=== PATIENT | female | born 1980 | race Two or more races ===

== ENCOUNTER 2025-05-30 12:47 | Emergency (ER) | payer SELFPAY ==
--- NOTE | 2025-05-30 13:18 | PC.NURSE ---
called airconditioning drafting officer to speak to patient for triage, pt had concerns about insurance coverage. pt then declined to be seen and was seen walking out of ER.
== END 2025-05-30 18:00 | disposition left against medical advice (07) ==
LOC: SERX 13:33
PROVIDERS: Emergency Provider Emergency Medicine
DX: Z53.21 Procedure and treatment not carried out due to patient leaving prior to being seen by health care provider (principal)
CPT/HCPCS: 99282

== ENCOUNTER 2025-05-30 16:54 | Emergency (ER) | payer BC, SELFPAY ==
[2025-05-30 16:56] VITALS: BMI 26.8
[2025-05-30 17:17] VITALS: BP 137/85; PULSE 100; RESP 18; TEMP 38.3; O2SAT 96
--- NOTE | 2025-05-30 17:28 | EKG_ITS ---
[facility] Test Date: 2025-05-30 Pat Name: ELDER OVALLE Department: Room: - Gender: Female Clerk To Justice: : 1980 Requested By: Mikey López Order Number: [id number] Reading MD: Mikey López Measurements Intervals [place] Rate: 105 P: 51 MT: 156 QRS: 76 QRSD: 83 T: 21 QT: 304 QTc: 403 Interpretive Statements SINUS TACHYCARDIA LOW QRS VOLTAGE IN PRECORDIAL LEADS [QRS DEFLECTION < 1.0 mV IN CHEST LEADS] POSSIBLE ANTERIOR MYOCARDIAL INFARCTION , OF INDETERMINATE AGE [30 ms Q WAVE IN V3/V4, OR R < 0.2 mV IN V4] No previous ECG available for comparison /store/S0/[id number]
--- NOTE | 2025-05-30 17:28 | XR_ITS ---
Examination: PA lateral chest 2 views TECHNIQUE: Upright PA and lateral chest 2 views Date and time: May 30, 2025, 1743 hours INDICATIONS: Chest pain shortness of breath today. FINDINGS: Pneumonia left base Normal heart size Right lung clear. Osseous structures intact IMPRESSION: Significant pneumonia left base.
--- NOTE | 2025-05-30 17:29 | PD.EDRME ---
Rapid Medical Screening Exam E Arrival date/time: 05/30/25 16:54 45-year-old female with no known medical history presents to the emergency room with a chief complaint of shortness of breath and chest pain x 2 days. I have greeted and performed a focused initial assessment of this patient. A comprehensive ED assessment and evaluation of the patient, analysis of all test results, and completion of the medical decision making process will be conducted by additional ED providers. Chief Complaint: Chest Pain Time Seen by Provider: 05/30/25 17:15 Vital signs: Vital Signs Temperature 98.4 F 05/30/25 17:17 Pulse Rate 102 H 05/30/25 17:17 Respiratory Rate 18 05/30/25 17:17 Blood Pressure 137/85 H 05/30/25 17:17 Pulse Oximetry (%) 96 05/30/25 17:17 Oxygen Delivery Method Room Air 05/30/25 17:17 Vital signs reviewed by provider: Yes
[2025-05-30 18:26] LABS: Basophils # (Auto) 0.0 Thou/mm3 (0.0-0.2); Basophils % (Auto) 0 % (0-2.5); Eosinophils # (Auto) 0.2 Thou/mm3 (0.0-0.5); Eosinophils % (Auto) 2 % (0-10); Hematocrit 38.0 % (36.0-46.0); Hemoglobin 12.7 g/dL (12.0-16.0); Immature Granulocytes Auto 0.04 Thou/mm3 (0.00-0.00); Lymphocytes # (Auto) 1.1 Thou/mm3 (1.0-4.8); Lymphocytes % (Auto) 10 % (10-50); Mean Corpuscular HGB Conc 33.4 g/dl (31.0-37.0); Mean Corpuscular Hemoglobin 29.7 pg (25.0-35.0); Mean Corpuscular Volume 89 fL (80-100); Monocytes # (Auto) 0.8 Thou/mm3 (0.0-0.8); Monocytes % (Auto) 7 % (0-12); Neutrophils # (Auto) 8.4 Thou/mm3 (1.8-7.7); Neutrophils % (Auto) 80 % (37-80); Nucleated Red Blood Cell # 0.00 Thou/mm3 (0.00-0.00); Nucleated Red Blood Cell % 0 /100 WBC (0); Platelet Count 277 Thou/mm3 (140-440); RDW Standard Deviation 39.6 fL (36.4-46.3); Red Blood Count 4.27 Miln/mm3 (4.00-5.20); White Blood Count 10.5 Thou/mm3 (3.6-11.0)
[2025-05-30 18:40] LABS: Collection Type, Urine Clean Catch
[2025-05-30 18:56] LABS: Amorphous Crystals,Urine Present (Absent); Bilirubin,Urine Negative (Negative); Blood,Urine Negative (Negative); Budding Yeast,Urine Present; Clarity,Urine Turbid (Clear/Hazy); Color,Urine Yellow (Lt Yel-Yel); Glucose, Urine 4+ (Negative); Ketones,Urine Negative (Negative); Leukocyte Esterase,Urine Negative (Negative); Nitrite,Urine Negative (Negative); PH,Urine 8.0 (5.0-7.0); Protein,Urine Trace (Neg - Trace); RBC,Urine 4 /hpf (0-3); Specific Gravity,Urine 1.024 (1.001-1.035); Squamous Epithelial Cell,Urine 8 /hpf (0-5); Urobilinogen,Urine Negative mg/dL (0.0-1.0); WBC,Urine 15 /hpf (0-5)
[2025-05-30 18:57] LABS: Alanine Aminotransferase 10 U/L (10-49); Albumin, Serum 4.6 gm/dL (3.5-5.0); Albumin/Globulin Ratio 1.6 (1.2-2.2); Alkaline Phosphatase 39 U/L (46-116); Anion Gap 10 (7-16); Aspartate Amino Transferase 14 U/L (0-34); BUN/Creatinine Ratio 14 Ratio (12-20); Bilirubin,Total 0.6 mg/dL (0.3-1.2); Blood Urea Nitrogen 10 mg/dL (9-23); Calcium 9.4 mg/dL (8.3-10.6); Calcium (Corrected) 9.4 mg/dL (8.5-10.1); Carbon Dioxide 25.0 mMol/L (20.0-31.0); Chloride 102 mMol/L (98-107); Creatinine (Component) 0.7 mg/dL (0.6-1.3); Estimated Creatinine Clearance 78.5 mL/min (>60); Globulin 2.9 gm/dL (2.3-3.5); Glucose 171 mg/dL (74-106); Magnesium 2.2 mg/dL (1.6-2.6); Osmolality,Calculated 276 (275-295); Potassium 4.0 mMol/L (3.4-5.1); Sodium 137 mMol/L (136-145); Total Protein 7.5 gm/dL (5.7-8.2); Troponin I < 0.020 ng/mL (0.0-0.045); eGFR > 60 See Note
[2025-05-30 19:00] LABS: B-Type Natriuretic Peptide < 20 pg/mL (0-100)
[2025-05-30 20:21] VITALS: BP 144/86; PULSE 93; RESP 18; TEMP 37.8; O2SAT 99
--- NOTE | 2025-05-30 20:24 | EDNOTE_ITS ---
ED Chest Pain RME/HPI General Chief Complaint: Chest Pain Stated Complaint: CHEST PAIN Time Seen by Provider: 05/30/25 17:15 Arrival date/time: 05/30/25 16:54 RME / HPI RME / HPI narrative: 05/30/25 16:54 45-year-old female with no known medical history presents to the emergency room with a chief complaint of shortness of breath and chest pain x 2 days. I have greeted and performed a focused initial assessment of this patient. A comprehensive ED assessment and evaluation of the patient, analysis of all test results, and completion of the medical decision making process will be conducted by additional ED providers. --------- Dr. Farrar?shiv Main ED Evaluation: 45yo female presenting with vaguely described luq/flank pain. Associated fever. Denies cough. Reports mild shortness of breath. No vomiting or diarrhea. PMH DM, HLD. PSH unremarkable. Related Data Previous Rx's ?Medication ?Instructions ?Recorded albuterol sulfate 90 mcg/actuation 2 puff inhalation Q 6H PRN 05/30/25 aerosol inhaler shortness of breath or wheez ing #8.5 grams cefuroxime axetil 500 mg tablet 500 mg PO Q12H #20 tab s 05/30/25 dextromethorphan-guaifenesin 5 10 ml PO Q6H PRN cough #180 mL 05/30/25 mg-100 mg/5 mL oral liquid (Robitussin Cough-Chest Congestion DM) doxycycline hyclate 100 mg capsule 100 mg PO BID 10 da ys #20 caps 05/30/25 Allergies Allergy/AdvReac Type Severity Reaction Status Date / Time No Known Drug Allergies Allergy Verified 05/30/25 17:04 Review of Systems Review of Systems Systems Reviewed: All systems reviewed, normal except as documented Past Medical History Social History SMOKING STATUS: Never smoker ED Exam Narrative Physical exam: GENERAL APPEARANCE: alert and oriented x 4, well-developed, well-nourished, nontoxic, no acute distress VITALS: All vitals were reviewed and the pulse ox is 99% on room air, which is normal according to my interpretation. Noted low-grade fever. HEENT: Normocephalic, atraumatic; pupils equal, round, reactive to light; EOMI; mucous membranes pink, moist; oropharynx clear NECK: Supple LUNGS: CTABL; no wheezes, no rales, no rhonchi HEART: Regular rate, regular rhythm; normal S1, S2; no murmurs ABDOMEN: non distended; normal BS; soft, no tenderness, no guarding, no rebound; no masses, no organomegaly, no hernia BACK: ? mild left CVA tenderness EXTREMITIES: atraumatic; no edema NEUROLOGIC: awake; alert and oriented x4; cranial nerves II-XII grossly intact; no focal sensory or motor deficits PSYCHIATRIC: appropriate mood and affect SKIN: warm, dry, normal color; no rashes Course Course Course Narrative: CXR is ordered for determining the etiology of chest pain. Quality Measures none Orders Category Date Time Status Bedside COVID-19 Antigen Test NOW Care 05/30/25 17:29 Completed Bedside Influenza A&B Antigen Test NOW Care 05/30/25 17:29 Completed EKG (ED ONLY) *Do not use* NOW Care 05/30/25 17:28 Completed EKG (ED Only) Stat Exams 05/30/25 17:28 Draft XR chest 2V Stat Exams 05/30/25 17:28 Completed B-Type Natriuretic Peptide Stat Lab 05/30/25 18:04 Completed CBC Stat Lab 05/30/25 18:04 Completed Comprehensive Metabolic Panel Stat Lab 05/30/25 18:04 Completed Magnesium Stat Lab 05/30/25 18:04 Completed Troponin I Stat Lab 05/30/25 18:04 Completed Urinalysis Stat Lab 05/30/25 18:34 Completed Doxycycline [Vibramycin] Med 05/30/25 20:50 Discontinued 100 mg PO X1 ONE cefTRIAXone [Rocephin] 1,000 mg Med 05/30/25 20:49 Discontinued Lidocaine 1% 20 ml [Xylocaine 1% 20 ML] 2.1 ml IM X1 Vital Signs Vital signs: Vital Signs Temperature 100.9 F H 05/30/25 17:17 Pulse Rate 100 05/30/25 17:17 Respiratory Rate 18 05/30/25 17:17 Blood Pressure 137/85 H 05/30/25 17:17 Pulse Oximetry (%) 96 05/30/25 17:17 Oxygen Delivery Method Room Air 05/30/25 17:17 Chest Pain MDM Narrative MDM Narrative:: Scribe Attestation: 05/30/25 Shalonda Cota am scribing for and in the presence of Dr. Farrar. 45yo female presenting with vaguely described luq/flank pain. Associated fever. Please see PE findings. Lab markers including CBC and chemistries are unremarkable. UA shows equivocal evidence of infection. CXR demonstrates evidence of left lower lobar pneumonia. Patient administered IM Rocephin and PO Azithromycin. Patient remained hemodynamically stable without signs of sepsis or respiratory insufficiency. Will discharge the patient home on outpatient antibiotics (Cefuroxime and Doxycycline), mucolytic, and cough suppressant in addition to an inhaler. Close follow-up advised and return precautions given. Patient data External records reviewed:: [facility] previous records (Per chart review, patient has no previous ED visits or admissions to this facility.) Clinical information provided by:: patient Social determinants that could affect healthcare access:: none Patient has the following chronic illnesses:: none How is presenting disease/condition affected by chronic disease/condition?: no chronic disease Evaluation data The following diagnostics were reviewed and interpreted by me:: lab results, radiology exam(s) and EKG tracing(s) Lab and/or radiology exams considered but not ordered:: none Interpretation Summary: EKG done at 1730, sinus tachycardia, rate of 105, no ST segment elevation, nonspecific ST-T wave changes, possible previous anterior septal wall infarct, no ectopy, normal axis, according to my interpretation. -------- [facility] Report Signed Patient: ELDER OVALLE [facility]. Record#: [id number] Birthdate: 1980 Age/Sex: 45 / F Location: [facility] Attending Dr: Ordering Physician: Mikey Clark Date of Service: 05/30/25 Procedure(s): XR chest 2V Accession Number(s): [id number] cc: Mikey Clark; Bhupinder Jean MD; NO PRIMARY/FAMILY,PHYSICIAN~ Examination: PA lateral chest 2 views TECHNIQUE: Upright PA and lateral chest 2 views Date and time: May 30, 2025, 1743 hours INDICATIONS: Chest pain shortness of breath today. FINDINGS: Pneumonia left base Normal heart size Right lung clear. Osseous structures intact IMPRESSION: Significant pneumonia left base. Dictated By: Bhupinder Jean MD Signed By: <Electronically signed by Bhupinder Jean MD in OV> 05/30/25 7813 Medications / Prescriptions Medications or Prescriptions considered but not ordered:: none Medication administrations:: Medication Administration History Discontinued Medications Ceftriaxone Sodium 1,000 mg/ (Lidocaine HCl 2.1 ml) 0 mg IM X1 ONE Stop: 05/30/25 20:50 Last Admin: 05/30/25 20:56 Dose: 1,000 mg Documented By: SUYAPA Doxycycline Hyclate (Doxycycline 100 Mg Tablet) 100 mg PO X1 ONE Stop: 05/30/25 20:51 Last Admin: 05/30/25 20:56 Dose: 100 mg Documented By: SUYAPA see above Consultations Consultation(s) initiated? (list below): No Diagnosis Chest Pain Differential Diagnosis: atypical chest pain, st elevation myocardial infarction and other (NSTEMI, pneumonia, COVID, Influenza, viral syndrome, URI) Most likely diagnosis given after review of the tests above:: Pneumonia Admission Indicated Admission indicated?: not indicated Admission Request Was there a request for admission?: No Disposition Plan Disposition Plan: Discharge Discharge Attestation Discharge Attestation: The patient and all family members were given an opportunity to ask questions and understood the discharge instructions. Discharge instructions specifically effects, indications for sooner follow up or return to the emergency department, and the expected course of current diagnosis. Patient condition: Stable Discharge Plan Plan Patient Disposition: HOME (Self Care) Discharge Disposition comment: Stable Prescriptions/Referrals Prescriptions/Med Rec: New cefuroxime axetil 500 mg tablet 500 mg PO Q12H Qty: 20 0RF doxycycline hyclate 100 mg capsule 100 mg PO BID 10 Days Qty: 20 0RF dextromethorphan-guaifenesin [Robitussin Cough-Chest Angelo DM] 5-100 mg/5 mL liquid 10 ml PO Q6H PRN (Reason: cough) Qty: 180 0RF albuterol sulfate 90 mcg/actuation HFA aerosol inhaler 2 puff inhalation Q6H PRN (Reason: shortness of breath or wheezing) Qty: 8.5 0RF Referrals: [facility] [Outside] - In 1 week (Please evaluate for evidence of left lower lobe pneumonia) No Primary/Family,Physician [Primary Care Provider] - In 1 week Problem List Clinical Impression: Pneumonia Impression comment: Pneumonia Patient/Caregiver Discharge Instructions Discharge Activity: resume usual activities Diet Instructions: Regular Education Materials: What Is Pneumonia? Additional Instructions: Increase fluids/maintain adequate rest/medications as directed/follow-up with the [facility] and return for increasing shortness of breath lightheadedness dizziness or worsening condition. Print Language: Mandarin Stand Alone Forms: Karolina Award Info., Patient Portal Info Letter
[2025-05-30] MEDS: cefTRIAXone 1,000 MG, LIDOCAINE 1% 20 ML 2.1 ML IM (20:56)
[2025-05-30] MEDS: DOXYCYCLINE 100 MG TABLET PO (20:56)
== END 2025-05-30 21:25 | disposition home or self-care (01) ==
PROVIDERS: Nurse Practitioner Family; Emergency Provider Emergency Medicine
DX: J18.9 Pneumonia, unspecified organism (principal); R00.0 Tachycardia, unspecified
CPT/HCPCS: 36415; 71046; 80053; 81001; 83735; 83880; 84484; 85025; 87400; 87811; 93005; 96372; 99283; J0696; J3490; A9270

== ENCOUNTER 2025-06-10 08:54 | Emergency (ER) | payer BC, SELFPAY ==
--- NOTE | 2025-06-10 09:18 | XR_ITS ---
Examination: PA lateral chest 2 views TECHNIQUE: Upright PA lateral chest 2 views Date and time: June 10, 2025 1004 hours INDICATIONS: Shortness of breath with pneumonia diagnosis 11 days ago. FINDINGS: Worsening pneumonia at the left base and lingular segment left upper lobe compared with June 09, 2025 Normal heart size Right lung clear IMPRESSION: Worsening significant left lung pneumonia
--- NOTE | 2025-06-10 09:18 | EKG_ITS ---
[facility] Test Date: 2025-06-10 Pat Name: ELDER OVALLE Department: Room: - Gender: Female Casino Worker: : 1980 Requested By: Marcello Moore (JESUS ALBERTO) Order Number: [id number] Reading MD: Marcello Moore (EXPORT AGENT) Measurements Intervals [place] Rate: 79 P: 59 SC: 175 QRS: 66 QRSD: 93 T: 14 QT: 367 QTc: 423 Interpretive Statements SINUS RHYTHM LOW QRS VOLTAGE IN PRECORDIAL LEADS [QRS DEFLECTION < 1.0 mV IN CHEST LEADS] Compared to ECG 05/30/2025 17:30:53 Sinus tachycardia no longer present Myocardial infarct finding no longer present /store/S0/[id number]/ecg/[id number]
--- NOTE | 2025-06-10 09:18 | PD.EDRME ---
Rapid Medical Screening Exam RME Arrival date/time: 06/10/25 08:54 45-year-old female presents to the Emergency Department for complaint of shortness of breath patient had a diagnosis of pneumonia 11 days ago reports she has had continued shortness of breath Chief Complaint: Shortness of Breath/Dyspnea
[2025-06-10 09:22] VITALS: BP 115/78; PULSE 87; RESP 22; TEMP 36.8; O2SAT 97; BMI 22.6
[2025-06-10 09:58] LABS: Basophils # (Auto) 0.1 Thou/mm3 (0.0-0.2); Basophils % (Auto) 1 % (0-2.5); Eosinophils # (Auto) 0.9 Thou/mm3 (0.0-0.5); Eosinophils % (Auto) 8 % (0-10); Hematocrit 39.9 % (36.0-46.0); Hemoglobin 13.1 g/dL (12.0-16.0); Immature Granulocytes Auto 0.08 Thou/mm3 (0.00-0.00); Lymphocytes # (Auto) 1.4 Thou/mm3 (1.0-4.8); Lymphocytes % (Auto) 12 % (10-50); Mean Corpuscular HGB Conc 32.8 g/dl (31.0-37.0); Mean Corpuscular Hemoglobin 28.9 pg (25.0-35.0); Mean Corpuscular Volume 88 fL (80-100); Monocytes # (Auto) 1.0 Thou/mm3 (0.0-0.8); Monocytes % (Auto) 8 % (0-12); Neutrophils # (Auto) 8.1 Thou/mm3 (1.8-7.7); Neutrophils % (Auto) 71 % (37-80); Nucleated Red Blood Cell # 0.00 Thou/mm3 (0.00-0.00); Nucleated Red Blood Cell % 0 /100 WBC (0); Platelet Count 456 Thou/mm3 (140-440); RDW Standard Deviation 38.8 fL (36.4-46.3); Red Blood Count 4.53 Miln/mm3 (4.00-5.20); White Blood Count 11.5 Thou/mm3 (3.6-11.0)
[2025-06-10 09:59] LABS: Lactate (Lactic Acid) 1.8 mMol/L (0.4-2.0)
--- NOTE | 2025-06-10 10:10 | EDNOTE_ITS ---
ED SOB =RME/HPI General Chief Complaint: Shortness of Breath/Dyspnea Stated Complaint: SOB since 05/30/2025, PNA Time Seen by Provider: 06/10/25 09:46 Arrival date/time: 06/10/25 08:54 Limitations: no limitations RME / HPI RME / HPI Narrative: 06/10/25 08:54 45-year-old female presents to the Emergency Department for complaint of shortness of breath patient had a diagnosis of pneumonia 11 days ago reports she has had continued shortness of breath DR. OSWALD MAIN ED EVALUATION: 45 year old female with no stated medical history presents to the ED for evaluation of shortness of breath not improving since being diagnosed with pneumonia 2 weeks ago. Accompanied by subjective fevers, coughing, difficulty sleeping due to cough, and chest pain. reports the patient was prescribed a 10-day course of antibiotics which she completed without improvement. Per EMR review, patient was discharged 05/30/2025 diagnosed with pneumonia and prescribed both Cefuroxime and Doxycycline. No other associated symptoms reported. Related Data Previous Rx's ?Medication ?Instructions ?Recorded albuterol sulfate 90 mcg/actuation 2 puff inhalation Q 6H PRN 05/30/25 aerosol inhaler shortness of breath or wheez ing #8.5 grams cefuroxime axetil 500 mg tablet 500 mg PO Q12H #20 tab s 05/30/25 dextromethorphan-guaifenesin 5 10 ml PO Q6H PRN cough #180 mL 05/30/25 mg-100 mg/5 mL oral liquid (Robitussin Cough-Chest Congestion DM) albuterol sulfate 90 mcg/actuation 2 puff inhalation Q 6H PRN 06/10/25 aerosol inhaler shortness of breath or wheez ing #8.5 grams doxycycline monohydrate 100 mg 100 mg PO BID PNEUMONIA #20 caps 06/10/25 capsule levofloxacin 500 mg tablet 500 mg PO Q24H 10 days #10 tabs 06/10/25 prednisone 20 mg tablet See Taper PO QDAY allergic 0 06/10/25 reaction #18 tabs Allergies Allergy/AdvReac Type Severity Reaction Status Date / Time No Known Drug Allergies Allergy Verified 06/10/25 09:00 Review of Systems Review of Systems Systems Reviewed: All systems reviewed, normal except as documented Past Medical History Social History SMOKING STATUS: Never smoker ED Exam General Limitations: Present no limitations General appearance: Present alert and in no apparent distress Head Head exam: Present atraumatic, normocephalic and normal inspection Eye Eye exam: Present normal appearance and EOMI ENT ENT exam: Present normal exam, normal oropharynx and mucous membranes moist Neck Neck exam: Present normal inspection, full ROM and trachea midline Chest Chest inspection: Present normal inspection and symmetric chest wall rise Respiratory Respiratory exam: Present other (Diminished breath sounds left base, no wheezing, no rhonchi, no rales, no crackles ) Cardiovascular Cardiovascular exam: Present regular rate, normal rhythm and normal heart sounds Abdominal Exam Abdominal exam: Present soft and normal bowel sounds Extremities Exam Extremities exam: Present normal inspection and full ROM Back Exam Back exam: Present normal inspection and full ROM Neurological Exam Neurological exam: Present alert, oriented X3 and CN II-XII intact Psychiatric Psychiatric exam: Present normal affect and normal mood Skin Skin exam: Present warm, dry, intact and normal color Course Quality Measures none Orders Category Date Time Status Bedside COVID-19 Antigen Test NOW Care 06/10/25 09:18 Active Bedside Influenza A&B Antigen Test NOW Care 06/10/25 09:18 Completed EKG (ED ONLY) *Do not use* NOW Care 06/10/25 09:18 Completed EKG (ED Only) Stat Exams 06/10/25 09:18 Draft XR chest 2V Stat Exams 06/10/25 09:18 Completed Blood Culture (Lab) Stat Lab 06/10/25 09:50 Received CBC Stat Lab 06/10/25 09:50 Completed Cocci Serology IgM with reflex to IgG [Cocci Serology, Lab 06/10/25 09:50 Received Unk History] Stat Comprehensive Metabolic Panel Stat Lab 06/10/25 09:50 Completed HCG,Qualitative Serum Stat Lab 06/10/25 09:50 Completed Lactate (Lactic Acid) Stat Lab 06/10/25 09:50 Completed Procalcitonin Stat Lab 06/10/25 09:50 Completed Troponin I Stat Lab 06/10/25 09:50 Completed ALBUTEROL RT 3ml [Proventil Rt 3ml] Med 06/10/25 10:36 Discontinued 5 mg INH X1 ONE Levofloxacin [Levaquin] Med 06/10/25 10:36 Discontinued 500 mg PO X1 ONE predniSONE Med 06/10/25 10:36 Discontinued 60 mg PO X1 ONE Vital Signs Vital signs: Vital Signs Temperature 98.2 F 06/10/25 09:22 Pulse Rate 87 06/10/25 09:22 Respiratory Rate 22 H 06/10/25 09:22 Blood Pressure 115/78 06/10/25 09:22 Pulse Oximetry (%) 97 06/10/25 09:22 Oxygen Delivery Method Room Air 06/10/25 09:22 Pulse ox is 97% on room air which is adequate. Shortness of Breath / Dyspnea MDM Narrative MDM Narrative:: Arianne Hicks am scribing for and in the presence of Dr. Jhaveri. Patient data External records reviewed:: [facility] previous records (I reviewed ED visit from 05/30/2025 ) Clinical information provided by:: patient Social determinants that could affect healthcare access:: none Patient has the following chronic illnesses:: None reported How is presenting disease/condition affected by chronic disease/condition?: no chronic disease Evaluation data The following diagnostics were reviewed and interpreted by me:: lab results, radiology exam(s) and EKG tracing(s) (06/10/2025 @ 09:25 AM. NSR, rate 79, no STEMI. ) Lab and/or radiology exams considered but not ordered:: None Interpretation Summary: Ordering Physician: Teresa COCHRAN)Marcello NP Date of Service: 06/10/25 Procedure(s): XR chest 2V Accession Number(s): [id number] cc: Teresa COCHRAN),Marcello GRANDA; Lucia Berger LIGHT RAIL VEHICLE OPERATOR; Bhupinder Jean MD~ Examination: PA lateral chest 2 views TECHNIQUE: Upright PA lateral chest 2 views Date and time: June 10, 2025 1004 hours INDICATIONS: Shortness of breath with pneumonia diagnosis 11 days ago. FINDINGS: Worsening pneumonia at the left base and lingular segment left upper lobe compared with June 09, 2025 Normal heart size Right lung clear IMPRESSION: Worsening significant left lung pneumonia Dictated By: Bhupinder Jean MD Signed By: <Electronically signed by Bhupinder Jean MD in OV> 06/10/25 1014 Medications / Prescriptions Medications or Prescriptions considered but not ordered:: None Medication administrations:: Medication Administration History Discontinued Medications Albuterol (Albuterol Rt 2.5 Mg/3 Ml Nebu) 5 mg INH X1 ONE Stop: 06/10/25 10:37 Levofloxacin (Levofloxacin 250 Mg Tablet) 500 mg PO X1 ONE Stop: 06/10/25 10:37 Prednisone (Prednisone 20 Mg Tablet) 60 mg PO X1 ONE Stop: 06/10/25 10:37 See above Consultations Consultation(s) initiated? (list below): No Diagnosis Shortness of Breath Differential Diagnosis: acute exacerbation of chronic obstructive airways disease, congestive heart failure, community acquired pneumonia and asthma with exacerbation Most likely diagnosis given after review of the tests above:: Left lower lobe pneumonia Admission Indicated Admission indicated?: not indicated Admission Request Was there a request for admission?: No Disposition Plan Disposition Plan: Discharge Discharge Attestation Discharge Attestation: The patient and all family members were given an opportunity to ask questions and understood the discharge instructions. Discharge instructions specifically effects, indications for sooner follow up or return to the emergency department, and the expected course of current diagnosis. Patient condition: Stable Discharge Plan Plan Patient Disposition: HOME (Self Care) Prescriptions/Referrals Prescriptions/Med Rec: New levofloxacin 500 mg tablet 500 mg PO Q24H 10 Days Qty: 10 0RF prednisone 20 mg tablet See Taper PO QDAY MDD 3 Qty: 18 0RF Taper: Prednisone Taper 20 mg DAILY for 2 Days and 0 Hour Rx Instructions: Take 3 Tabs q Day for 3 days then take 2 tabs q Day for 3 days then take 1 tablet q Day for 3 days then D/C #18 doxycycline monohydrate 100 mg capsule 100 mg PO BID MDD 2 Qty: 20 0RF albuterol sulfate 90 mcg/actuation HFA aerosol inhaler 2 puff inhalation Q6H MDD 4 PUFFS PRN (Reason: shortness of breath or wheezing) Qty: 8.5 1RF No Action cefuroxime axetil 500 mg tablet 500 mg PO Q12H Qty: 20 0RF dextromethorphan-guaifenesin [Robitussin Cough-Chest Angelo DM] 5-100 mg/5 mL liquid 10 ml PO Q6H PRN (Reason: cough) Qty: 180 0RF albuterol sulfate 90 mcg/actuation HFA aerosol inhaler 2 puff inhalation Q6H PRN (Reason: shortness of breath or wheezing) Qty: 8.5 0RF Referrals: Lucia Berger FNP [Primary Care Provider] - In 1 week Problem List Clinical Impression: Left lower lobe pneumonia Patient/Caregiver Discharge Instructions Education Materials: ED Pneumonia (Adult) Additional Instructions: Follow-up with your primary care doctor in 2-3 days for recheck. You can return to the emergency department sooner if symptoms worsen or if you notice any new, concerning issues. Print Language: Mandarin Stand Alone Forms: Karolina Award Info., Patient Portal Info Letter
[2025-06-10 10:13] LABS: HCG,Qualitative Serum Negative
[2025-06-10 10:23] LABS: Alanine Aminotransferase 67 U/L (10-49); Albumin, Serum 4.4 gm/dL (3.5-5.0); Albumin/Globulin Ratio 1.3 (1.2-2.2); Alkaline Phosphatase 52 U/L (46-116); Anion Gap 11 (7-16); Aspartate Amino Transferase 44 U/L (0-34); BUN/Creatinine Ratio 12 Ratio (12-20); Bilirubin,Total 0.4 mg/dL (0.3-1.2); Blood Urea Nitrogen 7 mg/dL (9-23); Calcium 10.1 mg/dL (8.3-10.6); Calcium (Corrected) 10.1 mg/dL (8.5-10.1); Carbon Dioxide 25.2 mMol/L (20.0-31.0); Chloride 102 mMol/L (98-107); Creatinine (Component) 0.6 mg/dL (0.6-1.3); Estimated Creatinine Clearance 95.9 mL/min (>60); Globulin 3.4 gm/dL (2.3-3.5); Glucose 103 mg/dL (74-106); Osmolality,Calculated 273 (275-295); Potassium 3.4 mMol/L (3.4-5.1); Procalcitonin 0.06 ng/ml (0.0-0.49); Sodium 138 mMol/L (136-145); Total Protein 7.8 gm/dL (5.7-8.2); Troponin I < 0.002 ng/mL (0.0-0.045); eGFR > 60 See Note
[2025-06-10] MEDS: LEVOFLOXACIN 250 MG TABLET 500 MG PO (11:43)
[2025-06-10 11:45] VITALS: PULSE 88
[2025-06-10] MEDS: ALBUTEROL RT 2.5 MG/3 ML NEBU 5 MG INH (11:45)
[2025-06-10 11:47] VITALS: PULSE 85; RESP 19; O2SAT 99
[2025-06-10 12:01] LABS: Cocci Serology, IgM Positive (Negative)
[2025-06-10 12:03] LABS: Cocid Sro, CF/ID (UCD) NO CHG* See Sep Rpt
[2025-06-10 12:21] VITALS: RESP 20; O2SAT 97
== END 2025-06-10 12:22 | disposition home or self-care (01) ==
PROVIDERS: Nurse Practitioner Primary Care; Emergency Provider Family Medicine; PCP Registered Nurse Community Health
DX: J18.9 Pneumonia, unspecified organism (principal)
CPT/HCPCS: 36415; 71046; 80053; 83605; 84145; 84484; 84703; 85025; 86635; 87040; 87400; 87811; 93005; 94640; 99283; J7512; A9270

== ENCOUNTER 2025-06-11 12:44 | Observation (INO) | payer BC, SELFPAY ==
[2025-06-11 12:58] VITALS: BP 135/87; PULSE 84; RESP 22; TEMP 36.7; O2SAT 99; BMI 21.8
--- NOTE | 2025-06-11 12:58 | PD.EDURI ---
Upper Respiratory Inf. RME/HPI General Chief Complaint: Flu Like Symptoms Stated Complaint: COUGH AND WHEEZING Time Seen by Provider: 06/11/25 12:47 Arrival date/time: 06/11/25 12:44 45-year-old female presents to the Emergency Department today for complaint of shortness of breath and cough patient was evaluated yesterday and she also had a visit back on the eighth 12 days ago. I ordered a coccidiomycosis test on this patient yesterday patient was discharged prior to the results. Limitations: no limitations Related Data Previous Rx's ?Medication ?Instructions ?Recorded albuterol sulfate 90 mcg/actuation 2 puff inhalation Q6H PRN 05/30/25 aerosol inhaler shortness of breath or wheezing #8.5 grams cefuroxime axetil 500 mg tablet 500 mg PO Q12H #20 tabs 05/30/25 dextromethorphan-guaifenesin 5 10 ml PO Q6H PRN cough #180 mL 05/30/25 mg-100 mg/5 mL oral liquid (Robitussin Cough-Chest Congestion DM) albuterol sulfate 90 mcg/actuation 2 puff inhalation Q6H PRN 06/10/25 aerosol inhaler shortness of breath or wheezing #8.5 grams doxycycline monohydrate 100 mg 100 mg PO BID PNEUMONIA #20 caps 06/10/25 capsule levofloxacin 500 mg tablet 500 mg PO Q24H 10 days #10 tabs 06/10/25 prednisone 20 mg tablet See Taper PO QDAY allergic 06/10/25 reaction #18 tabs Allergies Allergy/AdvReac Type Severity Reaction Status Date / Time No Known Drug Allergies Allergy Verified 06/11/25 12:50 Review of Systems Review of Systems Systems Reviewed: All systems reviewed, normal except as documented Constitutional Constitutional: Reports system reviewed and no additional complaints, except as documented, Denies fever(s) and Denies headache(s) Eyes Eyes: Reports system reviewed and no additional complaints, except as documented and Denies blurry vision ENT Ears, Nose, Mouth, and Throat: Reports system reviewed and no additional complaints, except as documented, Denies headache(s), Denies nasal congestion and Denies nasal discharge Cardiovascular Cardiovascular: Reports system reviewed and no additional complaints, except as documented, Denies chest pain, Denies dyspnea and Reports dyspnea on exertion Respiratory Respiratory: Reports system reviewed and no additional complaints, except as documented, Reports chest congestion, Reports cough, Denies dyspnea, Reports dyspnea on exertion, Reports excessive phlegm production, Denies hemoptysis, Reports pain on inspiration, Reports pain with cough, Denies stridor and Denies wheezing Gastrointestinal Gastrointestinal: Reports system reviewed and no additional complaints, except as documented and Denies abdominal pain Integumentary/Breasts Skin/Breast: Reports system reviewed and no additional complaints, except as documented and Denies rash Neurologic Neurologic: Reports system reviewed and no additional complaints, except as documented, Reports as per HPI and Denies headache(s) Allergic/Immunologic Allergic/Immunologic: Denies wheezing Past Medical History Social History SMOKING STATUS: Never smoker ED Exam General Limitations: Present no limitations General appearance: Present alert and in no apparent distress Head Head exam: Present atraumatic, normocephalic and normal inspection Eye Eye exam: Present normal appearance, PERRL and EOMI; Absent conjunctival injection ENT ENT exam: Present normal exam, normal oropharynx and mucous membranes moist Neck Neck exam: Present normal inspection, full ROM and trachea midline Chest Chest inspection: Present normal inspection and symmetric chest wall rise Respiratory Respiratory exam: Present accessory muscle use and prolonged expiratory phase; Absent respiratory distress, wheezes or stridor Cardiovascular Cardiovascular exam: Present regular rate, normal rhythm and normal heart sounds Abdominal Exam Abdominal exam: Present soft and normal bowel sounds Extremities Exam Extremities exam: Present normal inspection and full ROM Back Exam Back exam: Present normal inspection and full ROM Neurological Exam Neurological exam: Present alert, oriented X3 and CN II-XII intact Psychiatric Psychiatric exam: Present normal affect and normal mood Skin Skin exam: Present warm, dry, intact and normal color Course Quality Measures none Orders Category Date Time Status Admit to Inpatient Status Routine Admission 06/11/25 14:04 Active Patient Condition Routine Admission 06/11/25 14:02 Ordered Activity as Tolerated Routine Care 06/11/25 14:05 Ordered COVID-19 Screening Questionnaire NOW Care 06/11/25 13:48 Active Continuous Pulse Oximetry NOW Care 06/11/25 14:02 Active Decision to Admit X1 Care 06/11/25 13:48 Active Flu & Pneumonia Vaccine Screen ONCE Care 06/11/25 14:07 Active Insert IV NOW Care 06/11/25 13:48 Active Miscellaneous Nursing Order NOW Care 06/11/25 14:10 Active Notify provider NEEDED Care 06/11/25 14:02 Active Sequential Compression Device QSHIFT Care 06/11/25 14:07 Active Diet Regular Diet 06/11/25 Dinner Active XR chest 1V portable Routine Exams 06/11/25 14:09 Taken CBC AM DRAW Lab 06/12/25 05:00 Ordered CBC AM DRAW Lab 06/13/25 05:00 Ordered CBC AM DRAW Lab 06/14/25 05:00 Ordered Comprehensive Metabolic Panel AM DRAW Lab 06/12/25 05:00 Ordered Comprehensive Metabolic Panel AM DRAW Lab 06/13/25 05:00 Ordered Comprehensive Metabolic Panel AM DRAW Lab 06/14/25 05:00 Ordered Lipid Panel AM DRAW Lab 06/12/25 05:00 Ordered Magnesium AM DRAW Lab 06/12/25 05:00 Ordered Magnesium AM DRAW Lab 06/13/25 05:00 Ordered Magnesium AM DRAW Lab 06/14/25 05:00 Ordered Phosphorous AM DRAW Lab 06/12/25 05:00 Ordered Phosphorous AM DRAW Lab 06/13/25 05:00 Ordered Phosphorous AM DRAW Lab 06/14/25 05:00 Ordered Thyroid Stimulating Hormone AM DRAW Lab 06/12/25 05:00 Ordered Acetaminophen Tab [Tylenol Tab] Med 06/11/25 14:02 Discontinued 650 mg PO Q6H PRN Fluconazole/Ns 400 mg Ivpb [Diflucan/Ns Ivpb] Med 06/11/25 14:12 Active 400 mg in 200 ml IV QDAY Ondansetron Inj [Zofran Inj] Med 06/11/25 14:07 Active 4 mg IVP Q6H PRN Sodium Chloride 0.9% 1000 ml [Ns] 1,000 ml Med 06/11/25 14:15 Discontinued IV 75 mls/hr guaiFENesin/COD SYRUP [Robitussin Ac Syrup] Med 06/11/25 14:17 Active 10 ml PO Q6H PRN Code Status Routine Oth 06/11/25 14:02 Ordered Oxygen Delivery DAILY RT 06/11/25 14:06 Active Vital Signs Vital signs: Vital Signs Temperature 98.0 F 06/11/25 12:58 Pulse Rate 84 06/11/25 12:58 Respiratory Rate 22 H 06/11/25 12:58 Blood Pressure 135/87 H 06/11/25 12:58 Pulse Oximetry (%) 99 06/11/25 12:58 Oxygen Delivery Method Room Air 06/11/25 12:58 O2 saturation 98% room air Upper Respiratory Infection MDM Narrative MDM Narrative:: 45-year-old female presents to the Emergency Department today for complaint of shortness of breath and cough patient was evaluated yesterday and she also had a visit back on the eighth 12 days ago. I ordered a coccidiomycosis test on this patient yesterday patient was discharged prior to the results. On exam patient has increased work of breathing cough and congestion I reviewed the patient's cocci test which came back positive Based on the cocci pneumonia and shortness of breath I do believe patient benefit from admission Consultation: I spoke with the hospitalist team who agreed to admit the patient Patient data External records reviewed:: [facility] previous records Clinical information provided by:: patient Social determinants that could affect healthcare access:: none Patient has the following chronic illnesses:: None How is presenting disease/condition affected by chronic disease/condition?: no chronic disease Evaluation data The following diagnostics were reviewed and interpreted by me:: lab results and radiology exam(s) Lab and/or radiology exams considered but not ordered:: Labs radiology reviewed Interpretation Summary: Labs and radiology reviewed Medications / Prescriptions Medications or Prescriptions considered but not ordered:: No meds Medication administrations:: Medication Administration History Acetaminophen (Acetaminophen 325 Mg Tablet) 650 mg PO Q6H PRN PRN Reason: Fever >100.4 Stop: 07/11/25 14:01 Albuterol/Ipratropium (Albuterol/Ipratropium (Duoneb) Rt Samira 3 Ml Nebu) 3 ml INH Q6HRRT PRN PRN Reason: shortness of breath Stop: 07/11/25 18:59 Azithromycin (Azithromycin 250 Mg Tablet) 500 mg PO QDAY [facility] Stop: 06/18/25 14:44 Guaifenesin/Codeine Phosphate (Guaifenesin/Cod Syrup 5 Ml Udc) 10 ml PO Q6H PRN; Protocol PRN Reason: COUGH Stop: 07/11/25 14:16 Fluconazole (Diflucan/Ns Ivpb) 400 mg in 200 mls @ 100 mls/hr IV QDAY ANN Stop: 06/18/25 14:11 Sodium Chloride (Ns) 1,000 mls @ 100 mls/hr IV .Q10H ANN Stop: 07/11/25 14:33 Ondansetron HCl (Ondansetron Inj 2 Mg/Ml Inj 2 Ml) 4 mg IVP Q6H PRN; Protocol PRN Reason: NAUSEA OR VOMITING Stop: 07/11/25 14:06 Discontinued Medications Acetaminophen (Acetaminophen 325 Mg Tablet) 650 mg PO Q6H PRN PRN Reason: Fever >101.5 Stop: 07/11/25 14:01 Albuterol/Ipratropium (Albuterol/Ipratropium (Duoneb) Rt Samira 3 Ml Nebu) 3 ml INH X1 ONE Stop: 06/11/25 14:34 Sodium Chloride (Ns) 1,000 mls @ 75 mls/hr IV .[id number] ANN Stop: 07/11/25 14:14 No meds Consultations Consultation(s) initiated? (list below): No Diagnosis Upper Respiratory Differential Diagnosis: upper respiratory infection, viral infection and bronchitis Most likely diagnosis given after review of the tests above:: Coccidiomycosis Admission Indicated Admission indicated?: indicated Admission Request Was there a request for admission?: Yes Admission Attestation Admission request attestation: Discussed case with [] from Hospitalist service regarding admission. Discussed patients ED course, exam findings, labs, and radiology results. The Hospitalist [agrees,declines] to accept the patient for admission. Disposition Plan Disposition Plan: Admit Discharge Plan Plan Patient Disposition: Admit Acute Care w/in Hospital Discharge Disposition comment: Stable Problem List Clinical Impression: Acute pneumonia due to coccidiomycosis, Cough PA/[employer]ICE [employer]OR Supervising Physician PA/[employer] SERVICE ADVISOR Supervising Physician: Dr. Dash
--- NOTE | 2025-06-11 14:09 | XR_ITS ---
Examination: PA chest single view TECHNIQUE: Upright PA chest single view Date and time: June 11, 2025 1022 hours INDICATIONS: Shortness of breath, pneumonia diagnosed on chest film June 10, 2025 TECHNIQUE: Significant pneumonia left lung remains Normal heart size Right lung clear IMPRESSION: Significant pneumonia left lung remains
[2025-06-11 14:46] VITALS: BP 110/87; PULSE 85; RESP 20; RESP 97; TEMP 36.3; O2SAT 97
[2025-06-11] MEDS: FLUCONAZOLE/NS 400 MG IVPB 400 MG/200 ML BAG 100 MG IV (15:10)
[2025-06-11] MEDS: AZITHROMYCIN 250 MG TABLET 500 MG PO (15:12)
[2025-06-11] MEDS: SODIUM CHLORIDE 0.9% 1000 ML 1,000 ML 100 ML IV (15:13)
--- NOTE | 2025-06-11 15:13 | ESHP_ITS ---
<Statement entered by Heather Russell MD - 06/11/25 22:40> Patient is a 45-year-old female with history of hypothyroidism on levothyroxine who presented to the ED with shortness of breath, cough and left-sided pneumonia. Evidently, patient was found to have a positive cocci IgM, and will be admitted her labs status for further management. Patient started on fluconazole, azithromycin for coccidiomycosis and atypical bacterial coverage respectively. Gave a breathing treatment x 1, and will use as needed if symptoms persist. Will continue to monitor patient's current symptoms, anticipate discharge within 24 to 48 hours. Will check patient's TSH level in a.m. I discussed with and supervised the hospital intern physician who took care of this patient. I personally saw and examined the patient and discussed the assessment and plan with the entire medicine team, including my attending Dr. Parra, I agree with most of the assessment and plan as documented below Heather Russell M.D. PGY-3 Disclaimer: Despite multiple revisions, due to the dictation software being used, the document bellow may not be free of grammatical errors including phonetic/typographic errors. However, this does not deter from our commitment to providing health care in the patient's best interest in mind. Documentation for date of: 06/11/25 HPI History of Present Illness History of present illness: 45 year-old Mandarin-speaking female with no significant past medical history aside from hypothyroidism (on levothyroxine), presented to [facility] ED on 06/11/2025 with worsening shortness of breath and intractable cough. Patient initially presented to the ED on 05/30/25 with a 2-day history of shortness of breath, chest pain, vague chest and flank pain, and subjective fevers. Initial workup, including CBC, CMP, and UA, was unremarkable. Chest X- ray showed a left lower lobe pneumonia. She was treated with IM Rocephin and PO Azithromycin in the ED and discharged with Cefuroxime, Doxycycline, a mucolytic, cough suppressant, and inhaler. Patient re-presented on 06/10/25 with persistent symptoms, including ongoing shortness of breath, difficulty sleeping due to cough, and subjective fevers. Repeat CXR showed significant worsening of left lung pneumonia. She was discharged with Levofloxacin, Doxycycline, Albuterol, and Prednisone. Coccidioidomycosis testing was ordered at that time and results were pending when patient was discharged. Today (06/11/25), the patient returns with worsening dyspnea and a severe, non- productive cough that occasionally leads to non-bloody emesis. She is unable to lie flat due to immediate onset of coughing. She also reports left-sided chest pain, subjective fevers, and back pain likely secondary to persistent coughing. She denies sore throat or rash. She experiences dyspnea on exertion, such as when walking short distances. Coccidioidomycosis testing ordered on 06/10 has since resulted positive. ED Course: -Vitals: BP 135/87, HR 84, T 98.0F, O2 sat 99% on room air. -Labs: WBC 11.5, Hgb 13.1, Plt 456, Neutrophils 8.1, Eosinophils 0.9; sodium 138, potassium 3.4, BUN 7, creatinine 0.6, glucose 103, AST 44, ALT 67, ALP 52, procalcitonin 0.06. Coccidioides IgM Ab positive. -Imaging: CXR showed significant pneumonia in left lung. Review of Systems Review of Systems Narrative Review of Systems: All 13 review of systems are negative except what is mentioned in the HPI. Past Medical History Past Medical History Comments PMH COMMENT: Past Medical History: as above Past Surgical History: none Family History: non contributory Social History: - Smoking: denies - Alcohol: denies - Illicit drugs: denies - Residence: lives in [place] with and kids. - Occupation: works at a restaurant Current Medications: pending med recs. Allergies: No known drug allergies. Exam Vital Signs Temp Pulse Resp BP Pulse Ox O2 Del Method 98.0 F 84 22 H 135/87 H 99 Room Air 06/11/25 12:58 06/11/25 12:58 06/11/25 12:58 06/11/25 12:58 06/11/25 12:58 06/11/25 12:58 Narrative Exam Physical Exam General: Awake and alert. Conversational and non-toxic appearing. HEENT: Normocephalic, atraumatic. Vascular eloy surrounding left eye. Heart: Regular rate and rhythm, no murmurs. Lungs: Using accessory muscles and prolonged expiratory phase. No acute respiratory distress. No wheezing or stridor. Abdomen: Soft, nondistended, nontender. No guarding or rebound tenderness. Neurologic: Alert and oriented x3, no gross neurological deficit, and patient able to move all 4 extremities. Extremities: No edema. Skin: No rash or ecchymoses. Results: Labs 06/12/25 05:00 06/12/25 05:00 Quality Measures Quality Measures none Medications Home Medications and Allergies Home Medications ?Medication ?Instructions ?Recorded ?Confirmed ?Type levothyroxine 75 mcg tablet 75 mcg PO QDAY 06/11/25 History Allergies Allergy/AdvReac Type Severity Reaction Status Date / Time No Known Drug Allergies Allergy Verified 06/11/25 12:50 Visit Medications Acetaminophen (Acetaminophen 325 Mg Tablet) 650 mg PO Q6H PRN PRN Reason: Fever >100.4 Stop: 07/11/25 14:01 Albuterol/Ipratropium (Albuterol/Ipratropium (Duoneb) Rt Samira 3 Ml Nebu) 3 ml INH Q6HRRT PRN PRN Reason: shortness of breath Stop: 07/11/25 18:59 Azithromycin (Azithromycin 250 Mg Tablet) 500 mg PO QDAY [facility] Stop: 06/18/25 14:44 Last Admin: 06/11/25 15:12 Dose: 500 mg Guaifenesin/Codeine Phosphate (Guaifenesin/Cod Syrup 5 Ml Udc) 10 ml PO Q6H PRN; Protocol PRN Reason: COUGH Stop: 07/11/25 14:16 Fluconazole (Diflucan/Ns Ivpb) 400 mg in 200 mls @ 100 mls/hr IV QDAY ANN Stop: 06/18/25 14:11 Last Admin: 06/11/25 15:10 Dose: 100 mls/hr Sodium Chloride (Ns) 1,000 mls @ 100 mls/hr IV .Q10H ANN Stop: 07/11/25 14:33 Last Admin: 06/11/25 15:13 Dose: 100 mls/hr Ondansetron HCl (Ondansetron Inj 2 Mg/Ml Inj 2 Ml) 4 mg IVP Q6H PRN; Protocol PRN Reason: NAUSEA OR VOMITING Stop: 07/11/25 14:06 Discontinued Medications Acetaminophen (Acetaminophen 325 Mg Tablet) 650 mg PO Q6H PRN PRN Reason: Fever >101.5 Stop: 07/11/25 14:01 Albuterol/Ipratropium (Albuterol/Ipratropium (Duoneb) Rt Samira 3 Ml Nebu) 3 ml INH X1 ONE Stop: 06/11/25 14:34 Sodium Chloride (Ns) 1,000 mls @ 75 mls/hr IV .[id number] ANN Stop: 07/11/25 14:14 Assessment & Plan Plan 45-year-old female with past medical history significant for hypothyroidism on levothyroxine presenting with progressive shortness of breath, intractable cough, left-sided pneumonia, and positive coccidioidomycosis, admitted for observation. #Community acquired pneumonia #Left lower lobe pneumonia #Coccidioidomycosis 05/30: presented for 2 day history of shortness of breath, vague chest and flank pain, subjective fevers. CXR showed left lower lobe pneumonia. Treated in ED with IM Rocephin and PO Azithromycin, then discharged on Cefuroxime, Doxycycline, a mucolytic, cough suppressant, and an inhaler. 06/10: returned due to persistent symptoms including shortness of breath, difficulty sleeping due to intractable cough, and subjective fevers. Repeat CXR demonstrated worsening pneumonia in the left lung. She was discharged with Levofloxacin, Doxycycline, Albuterol, and Prednisone. Coccidioidomycosis testing was ordered and later returned positive. CXR (06/11): Significant left lung consolidation concerning for worsening pneumonia. Plan: - Start IV fluconazole 400 mg daily for coccidioidomycosis. - Start Azithromycin 500 mg PO daily for atypical bacterial coverage. - Duoneb nebulizer x1 now and PRN for bronchospasm or wheezing. - IV Normal Saline for hydration. - Sputum culture pending to guide further antimicrobial therapy. - Influenza A & B rapid panel to rule out viral co-infection. - Monitor for clinical response (fever, respiratory status, oxygen requirements). #Mild Transaminitis Likely multifactorial, possible medication induced vs systemic illness AST 44, ALT 67, ALP 52, T.bili 0.4. Plan: - Monitor LFTs daily while on antifungal therapy. - Rule out other causes (viral hepatitis panel, medication-related, sepsis- related) if persistent or worsening. #Intractable cough Likely multifactorial: pneumonia, airway inflammation, possible fungal-related irritation Plan: - Guaifenesin PRN for symptomatic relief. - Monitor for hemoptysis or worsening respiratory distress. - Incentive spirometry treatment. #Hypothyroidism Patient reports that she was diagnosed 2 years ago and that she takes levothyroxine at home. Plan: - Pending med rec - will continue home medication when confirmed. Health Maintenance Disposition: Observation DVT prophylaxis: SCD GI prophylaxis: None Diet: Regular Lines: Peripheral IV CODE STATUS: FULL Patient plan of care was discussed with the senior resident, Dr. Russell , and attending physician, Dr. Parra. Curtis Del Rio DO PGY-1 Attending Provider Attestation/Addendum Nandini Hicks DO, attest that I was physically present for the chavarria portions of the service and evaluated the patient with the resident and I reviewed and discussed the case with the resident and agree with the resident's findings and plans of care as documented above Patient is a 45-year-old female with past medical history who presented to the ED with worsening shortness of breath for the past 3 weeks. Patient was first seen in the ED on 05 30 during which she was noted to have a fever, chest pain, shortness of breath. She was found to have left lower lobe pneumonia and treated with 1 week of doxycycline and cefuroxime. Patient states that she had no improvement of her symptoms return to the ED yesterday. Patient is unable to work due to pleuritic chest pain on deep inspiration and cough with her coughing spells. She denies any fevers or chills anymore. She denies any tobacco use either. Patient was discharged home with levofloxacin and a steroid taper. Today, IgM of coccidiomycosis was noted to be positive. Patient was recalled by ED physician and return to the ED. She remains to have some respiratory distress at rest. Patient speaks with breaks in her sentences. She endorses productive cough and sputum, as well as poor appetite. Will start patient on fluconazole, IV fluids and azithromycin. Procal is 0.06, essentially negative for gram negative bacteria. Will nevertheless cover for atypical bacteria. Encourage use of incentive spirometer, give one breathing treatment and cough suppressant. Admit to med/surg for further observation.
[2025-06-11 15:30] VITALS: PULSE 64; RESP 18; O2SAT 98
[2025-06-11] MEDS: ALBUTEROL/IPRATROPIUM (Duoneb) RT SOL 3 ML NEBU INH (15:30)
[2025-06-11 16:54] LABS: Basophils # (Auto) 0.1 Thou/mm3 (0.0-0.2); Basophils % (Auto) 0 % (0-2.5); Eosinophils # (Auto) 0.2 Thou/mm3 (0.0-0.5); Eosinophils % (Auto) 1 % (0-10); Hematocrit 38.0 % (36.0-46.0); Hemoglobin 12.2 g/dL (12.0-16.0); Immature Granulocytes Auto 0.12 Thou/mm3 (0.00-0.00); Lymphocytes # (Auto) 1.0 Thou/mm3 (1.0-4.8); Lymphocytes % (Auto) 8 % (10-50); Mean Corpuscular HGB Conc 32.1 g/dl (31.0-37.0); Mean Corpuscular Hemoglobin 28.3 pg (25.0-35.0); Mean Corpuscular Volume 88 fL (80-100); Monocytes # (Auto) 0.2 Thou/mm3 (0.0-0.8); Monocytes % (Auto) 2 % (0-12); Neutrophils # (Auto) 11.3 Thou/mm3 (1.8-7.7); Neutrophils % (Auto) 88 % (37-80); Nucleated Red Blood Cell # 0.00 Thou/mm3 (0.00-0.00); Nucleated Red Blood Cell % 0 /100 WBC (0); Platelet Count 469 Thou/mm3 (140-440); RDW Standard Deviation 38.8 fL (36.4-46.3); Red Blood Count 4.31 Miln/mm3 (4.00-5.20); White Blood Count 12.9 Thou/mm3 (3.6-11.0)
[2025-06-11 17:16] LABS: Alanine Aminotransferase 96 U/L (10-49); Albumin, Serum 4.4 gm/dL (3.5-5.0); Albumin/Globulin Ratio 1.4 (1.2-2.2); Alkaline Phosphatase 54 U/L (46-116); Anion Gap 11 (7-16); Aspartate Amino Transferase 68 U/L (0-34); BUN/Creatinine Ratio 17 Ratio (12-20); Bilirubin,Total 0.3 mg/dL (0.3-1.2); Blood Urea Nitrogen 10 mg/dL (9-23); Calcium 10.3 mg/dL (8.3-10.6); Calcium (Corrected) 10.3 mg/dL (8.5-10.1); Carbon Dioxide 22.8 mMol/L (20.0-31.0); Chloride 106 mMol/L (98-107); Creatinine (Component) 0.6 mg/dL (0.6-1.3); Estimated Creatinine Clearance 104.3 mL/min (>60); Globulin 3.2 gm/dL (2.3-3.5); Glucose 128 mg/dL (74-106); Osmolality,Calculated 280 (275-295); Potassium 4.4 mMol/L (3.4-5.1); Sodium 140 mMol/L (136-145); Total Protein 7.6 gm/dL (5.7-8.2); eGFR > 60 See Note
[2025-06-11 18:20] VITALS: BP 117/83; PULSE 67; RESP 18; TEMP 37.1; O2SAT 95
[2025-06-11 20:17] VITALS: BMI 21.8
[2025-06-11 20:20] VITALS: BP 117/80; PULSE 73; RESP 18; TEMP 36.8; O2SAT 98
--- NOTE | 2025-06-11 22:46 | PC.NURSE ---
pt received from ER at 2014, now in room 376. aao x4, pt speaks mandarin and understands very little afghan. family friend at bedside.
[2025-06-12] VITALS: BP 119/81; PULSE 70; RESP 18; TEMP 36.2; O2SAT 99
[2025-06-12] MEDS: guaiFENesin/COD SYRUP 5 ML UDC 10 ML PO ×2 (01:31→09:18)
[2025-06-12] MEDS: ACETAMINOPHEN 325 MG TABLET 650 MG PO (01:48)
[2025-06-12 04:00] VITALS: BP 119/81; PULSE 70; RESP 18; TEMP 36.2; O2SAT 99
[2025-06-12] MEDS: LEVOTHYROXINE SODIUM 25 MCG TABLET 75 MCG PO (05:03)
[2025-06-12] MEDS: SODIUM CHLORIDE 0.9% 1000 ML 1,000 ML 100 ML IV (05:03)
[2025-06-12 05:54] LABS: Basophils # (Auto) 0.1 Thou/mm3 (0.0-0.2); Basophils % (Auto) 1 % (0-2.5); Eosinophils # (Auto) 0.6 Thou/mm3 (0.0-0.5); Eosinophils % (Auto) 5 % (0-10); Hematocrit 33.1 % (36.0-46.0); Hemoglobin 10.9 g/dL (12.0-16.0); Immature Granulocytes Auto 0.09 Thou/mm3 (0.00-0.00); Lymphocytes # (Auto) 1.9 Thou/mm3 (1.0-4.8); Lymphocytes % (Auto) 15 % (10-50); Mean Corpuscular HGB Conc 32.9 g/dl (31.0-37.0); Mean Corpuscular Hemoglobin 29.2 pg (25.0-35.0); Mean Corpuscular Volume 89 fL (80-100); Monocytes # (Auto) 0.8 Thou/mm3 (0.0-0.8); Monocytes % (Auto) 6 % (0-12); Neutrophils # (Auto) 9.3 Thou/mm3 (1.8-7.7); Neutrophils % (Auto) 73 % (37-80); Nucleated Red Blood Cell # 0.00 Thou/mm3 (0.00-0.00); Nucleated Red Blood Cell % 0 /100 WBC (0); Platelet Count 380 Thou/mm3 (140-440); RDW Standard Deviation 38.5 fL (36.4-46.3); Red Blood Count 3.73 Miln/mm3 (4.00-5.20); White Blood Count 12.7 Thou/mm3 (3.6-11.0)
[2025-06-12 06:29] LABS: Alanine Aminotransferase 89 U/L (10-49); Albumin, Serum 3.5 gm/dL (3.5-5.0); Albumin/Globulin Ratio 1.3 (1.2-2.2); Alkaline Phosphatase 42 U/L (46-116); Anion Gap 10 (7-16); Aspartate Amino Transferase 56 U/L (0-34); BUN/Creatinine Ratio 20 Ratio (12-20); Bilirubin,Total 0.3 mg/dL (0.3-1.2); Blood Urea Nitrogen 12 mg/dL (9-23); Calcium 8.9 mg/dL (8.3-10.6); Calcium (Corrected) 9.3 mg/dL (8.5-10.1); Carbon Dioxide 24.0 mMol/L (20.0-31.0); Cardiac Risk Estimate 5.5 RATIO (3.7-5.6); Chloride 107 mMol/L (98-107); Cholesterol 137 mg/dL (132-200); Creatinine (Component) 0.6 mg/dL (0.6-1.3); Estimated Creatinine Clearance 100.1 mL/min (>60); Globulin 2.6 gm/dL (2.3-3.5); Glucose 78 mg/dL (74-106); HDL Cholesterol 25 mg/dL (40-60); LDL Cholesterol,Calculated 83 mg/dL (0-130); Magnesium 1.9 mg/dL (1.6-2.6); Osmolality,Calculated 279 (275-295); Phosphorous 3.4 mg/dL (2.4-5.1); Potassium 3.9 mMol/L (3.4-5.1); Sodium 141 mMol/L (136-145); Thyroid Stimulating Hormone 4.60 uIU/mL (0.55-4.78); Total Protein 6.1 gm/dL (5.7-8.2); Triglycerides 144 mg/dL (30-150); eGFR > 60 See Note
[2025-06-12 08:00] VITALS: BP 112/75; PULSE 60; RESP 17; TEMP 36.4; O2SAT 98
[2025-06-12] MEDS: FLUCONAZOLE/NS 400 MG IVPB 400 MG/200 ML BAG IV (09:18)
[2025-06-12] MEDS: AZITHROMYCIN 250 MG TABLET 500 MG PO (09:19)
--- NOTE | 2025-06-12 10:48 | PC.SS ---
Patient Avni Lagunas is a 45 Year old female admitted for SOB, Couch, COCCI POSS. SS me with patient at bedside, however due to language barrier SS contacted patient's son, Jonny Carroll who he reports is patient's surrogate decision maker, . He reports patient does not utilize any source of DME to assist with ambulation. Patient is able to complete all ADL's independently. Choice of pharmacy is [facility]. PCP is Lucia Berger. At time of discharge patient will return back home. Next of kin: Son, Conor Carroll Discharge plan: Home
--- NOTE | 2025-06-12 11:25 | XR_ITS ---
Examination: CT chest, without intravenous contrast. Sagittal and coronal 2-D reconstructions. Exam date and time: June 12, 2025 1301 hours INDICATIONS: Shortness of breath coughing beginning 12 days ago CTDI:vol (mGy) 9.7 DLP: (mGycm) 324 Technique: Multiple 3.0 mm axial sections of the chest to been obtained. Bone and lung density settings are obtained. Sagittal and coronal 2-D reconstructions have been obtained. Low dose protocols were performed. One or more of the following dose reduction techniques were used; automated exposure control, adjustment of the mA and/or KV according to patient size, use of iterative reconstruction technique. Findings: No thoracic aortic aneurysm dilatation Pulmonary artery segments are not enlarged. Diffuse left lung pneumonia, prominent in the lingular segment Small left pleural effusion 5 mm pulmonary nodule in the right middle lobe image 123 No visualized liver or splenic lesion Contracted gallbladder Kidneys partially visualized no hydronephrosis Osseous structures intact IMPRESSION: Diffuse left lung pneumonia, prominent in the lingular segment, recommend continued chest film follow-up 5 mm pulmonary nodule in the right middle lobe, recommend 6 month follow-up CT chest without contrast
[2025-06-12 12:00] VITALS: BP 116/90; PULSE 71; RESP 18; TEMP 36.9; O2SAT 98
--- NOTE | 2025-06-12 14:44 | PC.SS ---
SS follow up note; Patient will discharge possibly discharge home tomorrow.
[2025-06-12 16:00] VITALS: BP 122/70; PULSE 73; RESP 18; TEMP 36.4; O2SAT 98
--- NOTE | 2025-06-12 17:01 | ESPR_ITS ---
<Statement entered by Pedro Ohara MD - 06/12/25 17:24> Senior Resident Attestation: I supervised/discussed management plan with it intern physician Dr. Del Rio, and was involved in the care of this patient. I personally saw and examined the patient and discussed the assessment and plan with the entire medicine team, including my attending. I agree with the assessment and plan as documented. Patient complained of continued dry cough and was started on Tessalon today. Anticipate possible discharge tomorrow. Patient's care was discussed with attending physician, Dr. Parra. Pedro Ohara MD PGY-3. Documentation for date of: 06/12/25 Subjective Subjective Interval history: Patient was seen at the bedside this morning. She reports ongoing coughing, which has been somewhat relieved by guaifenesin. However, she experiences coughing fits triggered by attempts to speak. The patient notes only minimal improvement with DuoNeb treatments. Additionally, she reports pain localized under the left breast, described as pleuritic in nature?worsening with deep inspiration and cough. Tessalon Perles were added to help suppress the cough. A CT scan has been ordered to evaluate the pleuritic chest pain. Exam Vital Signs Temp Pulse Resp BP Pulse Ox O2 Del Method 98.4 F 71 18 116/90 H 98 Room Air 06/12/25 12:00 06/12/25 12:00 06/12/25 12:00 06/12/25 12:00 06/12/25 12:00 06/12/25 12:00 Narrative Exam Physical Exam General: Awake and alert. Conversational and non-toxic appearing. HEENT: Normocephalic, atraumatic. Vascular eloy under left eye. Heart: Regular rate and rhythm, no murmurs. Lungs: No acute respiratory distress. No wheezing or stridor. Dry cough. Abdomen: Soft, nondistended, nontender. No guarding or rebound tenderness. Neurologic: Alert and oriented x3, no gross neurological deficit, and patient able to move all 4 extremities. Extremities: No edema. Skin: No rash or ecchymoses. Objective Labs 06/12/25 05:00 06/12/25 05:00 Labs: Laboratory Results - last 24 hr 06/11/25 06/12/25 16:32 05:00 WBC 12.7 H RBC 3.73 L Hgb 10.9 L Hct 33.1 L MCV 89 MCH 29.2 MCHC 32.9 RDW Std Deviation 38.5 Plt Count 380 D Neut % (Auto) 73 Lymph % (Auto) 15 [place] % (Auto) 6 Eos % (Auto) 5 Baso % (Auto) 1 Neut # (Auto) 9.3 H Lymph # (Auto) 1.9 [place] # (Auto) 0.8 Eos # (Auto) 0.6 H Baso # (Auto) 0.1 Immature Gran # (Auto) 0.09 H Absolute Nucleated RBC 0.00 Immature Gran % 1 H Nucleated RBC % 0 Sodium 140 141 Potassium 4.4 D 3.9 D Chloride 106 107 Carbon Dioxide 22.8 24.0 Anion Gap 11 10 BUN 10 12 Creatinine 0.6 0.6 Estim Creat Clear Calc 104.3 100.1 eGFR > 60 > 60 BUN/Creatinine Ratio 17 20 Glucose 128 H 78 D Calculated Osmolality 280 279 Calcium 10.3 8.9 Corrected Calcium 10.3 H 9.3 Phosphorus 3.4 Magnesium 1.9 Total Bilirubin 0.3 0.3 AST 68 H 56 H ALT 96 H 89 H Alkaline Phosphatase 54 42 L D Total Protein 7.6 6.1 Albumin 4.4 3.5 D Globulin 3.2 2.6 Albumin/Globulin Ratio 1.4 1.3 Triglycerides 144 Cholesterol 137 LDL Cholesterol, Calc 83 HDL Cholesterol 25 L Cholesterol/HDL Ratio 5.5 TSH 4.60 Quality Measures Quality Measures none Assessment & Plan Assessment Current Active Medications: Generic Name Dose Route Start Last Admin Trade Name Freq PRN Reason Stop Dose Admin Acetaminophen 650 mg 06/11/25 15:54 06/12/25 01:48 Acetaminophen 325 Mg Tablet PO 07/11/25 14:01 650 mg Q6H PRN Administration Fever >100.4 or Pain Protocol Albuterol/Ipratropium 3 ml 06/11/25 14:33 Albuterol/Ipratropium (Duoneb) Rt Samira 3 Ml Nebu INH 07/11/25 18:59 Q6HRRT PRN shortness of breath Azithromycin 500 mg 06/11/25 14:45 06/12/25 09:19 Azithromycin 250 Mg Tablet PO 06/18/25 14:44 500 mg QDAY ANN Administration Benzonatate 200 mg 06/12/25 11:27 Benzonatate 100 Mg Capsule PO 07/12/25 11:26 Q8HR PRN COUGH Protocol Fluconazole 400 mg 06/13/25 09:00 Fluconazole 100 Mg Tablet PO 06/20/25 08:59 QDAY ANN Guaifenesin/Codeine Phosphate 10 ml 06/11/25 14:17 06/12/25 09:18 Guaifenesin/Cod Syrup 5 Ml Udc PO 07/11/25 14:16 10 ml Q6H PRN Administration COUGH Protocol Indomethacin 25 mg 06/12/25 14:15 Indomethacin 25 Mg Capsule PO 07/12/25 21:59 TID PRN Pleuritic chest pain Protocol Levothyroxine Sodium 75 mcg 06/12/25 06:00 06/12/25 05:03 Levothyroxine Sodium 25 Mcg Tablet PO 07/12/25 05:59 75 mcg ACBR ANN Administration Lidocaine 1 patch 06/12/25 14:15 Lidocaine 5% 1 Patch TOP 07/12/25 14:14 UD PRN PAIN Protocol Ondansetron HCl 4 mg 06/11/25 14:07 Ondansetron Inj 2 Mg/Ml Inj 2 Ml IVP 07/11/25 14:06 Q6H PRN NAUSEA OR VOMITING Protocol Plan 45-year-old female with past medical history significant for hypothyroidism on levothyroxine presenting with progressive shortness of breath, intractable cough, left-sided pneumonia, and positive coccidioidomycosis, admitted for observation. #Community acquired pneumonia #Left lower lobe pneumonia #Coccidioidomycosis 05/30: presented for 2 day history of shortness of breath, vague chest and flank pain, subjective fevers. CXR showed left lower lobe pneumonia. Treated in ED with IM Rocephin and PO Azithromycin, then discharged on Cefuroxime, Doxycycline, a mucolytic, cough suppressant, and an inhaler. 06/10: returned due to persistent symptoms including shortness of breath, difficulty sleeping due to intractable cough, and subjective fevers. Repeat CXR demonstrated worsening pneumonia in the left lung. She was discharged with Levofloxacin, Doxycycline, Albuterol, and Prednisone. Coccidioidomycosis testing was ordered and later returned positive. CXR (06/11): Significant left lung consolidation concerning for worsening pneumonia. CT Chest (06/12): Diffuse left lung pneumonia, 5 mm pulmonary nodule in the right middle lobe. Plan: - Start oral fluconazole 400 mg daily for coccidioidomycosis. Discontinue IV fluconazole 400 mg daily. - Continue Azithromycin 500 mg PO daily for atypical bacterial coverage. - Lidocaine patch PRN pain. - Indomethacin PO TID PRN pleuritic pain. - Discontinued IV Normal Saline for hydration. - Sputum culture pending to guide further antimicrobial therapy. - Influenza A & B rapid panel to rule out viral co-infection. - Monitor for clinical response (fever, respiratory status, oxygen requirements). - 6 month follow-up CT chest without contrast to recheck pulmonary nodule. #Mild Transaminitis Likely multifactorial, possible medication induced vs systemic illness AST 44, ALT 67, ALP 52, T.bili 0.4. Plan: - Monitor LFTs daily while on antifungal therapy. - Rule out other causes (viral hepatitis panel, medication-related, sepsis- related) if persistent or worsening. #Intractable cough Likely multifactorial: pneumonia, airway inflammation, possible fungal-related irritation Plan: - Guaifenesin PRN for symptomatic relief. - Tessalon Perles for suppressing cough. - Incentive spirometry treatment. - Monitor for hemoptysis or worsening respiratory distress. #Hypothyroidism Patient reports that she was diagnosed 2 years ago and that she takes levothyroxine at home. Plan: - Continue home levothyroxine 75 mcg PO daily. Health Maintenance Disposition: Observation DVT prophylaxis: SCD GI prophylaxis: None Diet: Regular Lines: Peripheral IV CODE STATUS: FULL Patient plan of care was discussed with the senior resident, Dr. Ohara , and attending physician, Dr. Parra. Curtis Del Rio DO PGY-1 Attending Provider Attestation/Addendum Nandini Hicks DO, attest that I was physically present for the chavarria portions of the service and evaluated the patient with the resident and I reviewed and discussed the case with the resident and agree with the resident's findings and plans of care as documented above Patient sen and evaluated this AM. She continues to complain of dry cough and has a lot of left pleuritic chest pain due to cough. Will give indomethacin for pleurisy. Chest CT was done showing diffuse Left lower lobe pneumonia in lingular segment. Small pleural effusion noted, will DC IV fluids at this time. patient continues to have some labored breathing with speech. Will add tessalon perles and encourage patient to use incentive spirometer. Anticipate DC within next 24h if patient condition remains stable/ improved.
[2025-06-12] MEDS: INDOMETHACIN 25 MG CAPSULE PO (17:26)
[2025-06-12 20:00] VITALS: BP 124/83; PULSE 69; RESP 18; TEMP 36.2; O2SAT 95
[2025-06-13] VITALS (7 sets, daily range): BP systolic 106–122; BP diastolic 69–82; PULSE 60–79; RESP 18–20; TEMP 36.1–36.6; O2SAT 95–99
[2025-06-13] MEDS: LEVOTHYROXINE SODIUM 25 MCG TABLET 75 MCG PO (05:02)
[2025-06-13 06:14] LABS: Basophils # (Auto) 0.1 Thou/mm3 (0.0-0.2); Basophils % (Auto) 1 % (0-2.5); Eosinophils # (Auto) 1.5 Thou/mm3 (0.0-0.5); Eosinophils % (Auto) 12 % (0-10); Hematocrit 37.9 % (36.0-46.0); Hemoglobin 12.3 g/dL (12.0-16.0); Immature Granulocytes Auto 0.10 Thou/mm3 (0.00-0.00); Lymphocytes # (Auto) 1.7 Thou/mm3 (1.0-4.8); Lymphocytes % (Auto) 14 % (10-50); Mean Corpuscular HGB Conc 32.5 g/dl (31.0-37.0); Mean Corpuscular Hemoglobin 28.6 pg (25.0-35.0); Mean Corpuscular Volume 88 fL (80-100); Monocytes # (Auto) 0.7 Thou/mm3 (0.0-0.8); Monocytes % (Auto) 6 % (0-12); Neutrophils # (Auto) 7.8 Thou/mm3 (1.8-7.7); Neutrophils % (Auto) 66 % (37-80); Nucleated Red Blood Cell # 0.00 Thou/mm3 (0.00-0.00); Nucleated Red Blood Cell % 0 /100 WBC (0); Platelet Count 428 Thou/mm3 (140-440); RDW Standard Deviation 38.5 fL (36.4-46.3); Red Blood Count 4.30 Miln/mm3 (4.00-5.20); White Blood Count 11.9 Thou/mm3 (3.6-11.0)
[2025-06-13 06:45] LABS: Alanine Aminotransferase 115 U/L (10-49); Albumin, Serum 3.9 gm/dL (3.5-5.0); Albumin/Globulin Ratio 1.2 (1.2-2.2); Alkaline Phosphatase 48 U/L (46-116); Anion Gap 12 (7-16); Aspartate Amino Transferase 45 U/L (0-34); BUN/Creatinine Ratio 13 Ratio (12-20); Bilirubin,Total 0.3 mg/dL (0.3-1.2); Blood Urea Nitrogen 8 mg/dL (9-23); Calcium 9.3 mg/dL (8.3-10.6); Calcium (Corrected) 9.4 mg/dL (8.5-10.1); Carbon Dioxide 26.4 mMol/L (20.0-31.0); Chloride 101 mMol/L (98-107); Creatinine (Component) 0.6 mg/dL (0.6-1.3); Estimated Creatinine Clearance 100.1 mL/min (>60); Globulin 3.3 gm/dL (2.3-3.5); Glucose 69 mg/dL (74-106); Magnesium 2.4 mg/dL (1.6-2.6); Osmolality,Calculated 273 (275-295); Phosphorous 3.5 mg/dL (2.4-5.1); Potassium 4.0 mMol/L (3.4-5.1); Sodium 139 mMol/L (136-145); Total Protein 7.2 gm/dL (5.7-8.2); eGFR > 60 See Note
[2025-06-13] MEDS: FLUCONAZOLE 100 MG TABLET 400 MG PO (09:08)
[2025-06-13] MEDS: AZITHROMYCIN 250 MG TABLET 500 MG PO (09:08)
--- NOTE | 2025-06-13 11:34 | PC.NURSE ---
As per the son who is providing pt discharge transportation will be arriving at the hospital at 1600 @06/13/25
--- NOTE | 2025-06-13 15:59 | ESDS_ITS ---
<Statement entered by Nandini Parra DO - 06/13/25 18:31> I, Nandini Parra DO, attest that I was physically present for the chavarria portions of the service and evaluated the patient with the resident and I reviewed and discussed the case with the resident and agree with the resident's findings and plans of care as documented above <Statement entered by Mariano Garcia MD - 06/13/25 17:25> Patient was examined and case was reviewed with team including attending physician. Note reviewed, I agree with most of its contents and agree with the patient's care as documented by Dr. Quang Garcia MD PGY-2 Planned Discharge Date 06/13/25 DS: Providers Provider Date of admission: 06/11/25 14:18 Primary care physician: MARBELLA Mendoza Admitting Provider: Nandini Parra DO Attending Provider on Admission: Nandini Parra DO Attending Provider on DC: Nandini Parra DO Discharging Provider: Curtis Del Rio DO Anticipated date of discharge: 06/13/25 DS: Diagnosis Problem List Completed Was Problem List Reviewed/Reconciled?: Yes Hospital Course Hospital Course Hospital course: 45-year-old female with hypothyroidism presented with worsening shortness of breath, cough, and left lower lobe pneumonia. Initially treated outpatient with antibiotics after an 05/30 ED visit, but symptoms persisted. On 06/10, repeat imaging showed worsening pneumonia. Coccidioidomycosis testing was ordered and later returned positive. Admitted on 06/11 for management of coccidioidomycosis and pneumonia. Started on fluconazole and azithromycin with supportive treatments including DuoNeb and cough suppressants. CT chest on 06/12 confirmed diffuse pneumonia with a small pleural effusion and a right middle lobe nodule. Patient improved clinically with decreased cough and stable respiratory status. Transaminitis was mild and monitored. Continued home levothyroxine. Patient is now medically and physically stable for discharge with outpatient follow-up planned, including a 6-month CT chest to monitor the pulmonary nodule. Diagnosis: #Community-acquired pneumonia #Pulmonary Coccidioidomycosis #Hypothyroidism #Mild transaminitis #Intractable cough #Right pulmonary nodule #Small left pleural effusion Discharge Plan: Follow up with PCP in 1 week of discharge. Take medications as prescribed. Take ibuprofen for pain as needed. Should symptoms recur or worsen patient is instructed to return to the ED. Case discussed with my senior resident Dr. Girish Garcia and with my attending . Curtis Del Rio DO PGY 1 Status at Discharge Overall status at discharge: patient is progressing back to baseline Time Spent with Patient Time attestation: Total time spent providing and/or coordinating discharge services: Time spent: Greater than 30 minutes Exam Vital Signs Temp Pulse Resp BP Pulse Ox O2 Del Method 97.9 F 73 18 106/69 98 Room Air 06/13/25 12:00 06/13/25 12:00 06/13/25 12:00 06/13/25 12:00 06/13/25 12:00 06/13/25 12:00 Narrative Exam Physical Exam General: Awake and alert. Conversational and non-toxic appearing. HEENT: Normocephalic, atraumatic. Vascular eloy under left eye. Heart: Regular rate and rhythm, no murmurs. Lungs: No acute respiratory distress. No wheezing or stridor. Dry cough. Abdomen: Soft, nondistended, nontender. No guarding or rebound tenderness. Neurologic: Alert and oriented x3, no gross neurological deficit, and patient able to move all 4 extremities. Extremities: No edema. Skin: No rash or ecchymoses. Discharge Plan Plan Patient Disposition: HOME (Self Care) Patient condition on transfer: Stable Care Plan Goals: Follow up with PCP in 1 week of discharge Take medications as prescribed. Take ibuprofen for pain as needed. Should symptoms recur or worsen patient is instructed to return to the ED. Prescriptions/Referrals Prescriptions/Med Rec: New benzonatate 100 mg capsule 100 mg PO BID PRN (Reason: cough) Qty: 30 0RF guaifenesin 200 mg tablet 200 mg PO QID PRN (Reason: cough) Qty: 30 0RF fluconazole 200 mg tablet 400 mg PO QDAY Qty: 60 0RF ibuprofen 800 mg tablet 800 mg PO Q8H PRN (Reason: pain) Qty: 30 0RF Continued dextromethorphan-guaifenesin [Robitussin Cough-Chest Angelo DM] 5-100 mg/5 mL liquid 10 ml PO Q6H PRN (Reason: cough) Qty: 180 0RF prednisone 20 mg tablet See Taper PO QDAY MDD 3 Qty: 18 0RF Taper: Prednisone Taper 20 mg DAILY for 2 Days and 0 Hour Rx Instructions: Take 3 Tabs q Day for 3 days then take 2 tabs q Day for 3 days then take 1 tablet q Day for 3 days then D/C #18 levothyroxine 75 mcg tablet 75 mcg PO QDAY Discontinued levofloxacin 500 mg tablet 500 mg PO Q24H 10 Days Qty: 10 0RF doxycycline monohydrate 100 mg capsule 100 mg PO BID MDD 2 Qty: 20 0RF Referrals: Lucia Berger FNP [Primary Care Provider] - Patient/Caregiver Discharge Instructions Print Language: Mandarin Stand Alone Forms: Karolina Award Info., Patient Portal Info Letter, Work/Release Restrictions Discharge Order Discharge Orders: Discharge (Routine); Ordered 06/13/25 Ordered By: Mariano Garcia Quality Discharge Quality Measures none
== END 2025-06-13 16:15 | disposition home or self-care (01) ==
LOC: SERX 13:49 → SERHOLD 14:37 → S3SX 06-12 07:54 → SERHOLD 06-12 07:54 → S3SX 06-12 08:03 → SERHOLD 06-17 09:40
PROVIDERS: Admitting Provider Internal Medicine; Emergency Provider Emergency Medicine; PCP Registered Nurse Community Health; Visit Provider Internal Medicine
DX: J18.9 Pneumonia, unspecified organism (principal); R74.01 Elevation of levels of liver transaminase levels; E03.9 Hypothyroidism, unspecified; B38.2 Pulmonary coccidioidomycosis, unspecified; J90 Pleural effusion, not elsewhere classified; R91.1 Solitary pulmonary nodule
CPT/HCPCS: 36415; 36600; 71045; 71250; 80053; 80061; 82803; 83735; 84100; 84443; 85025; 87205; 87400; 87502; 87811; 94640; 96361; 96365; 96366; 99284; A9270; G0378; J1450; J7030

== ENCOUNTER → 2025-08-11 | Outpatient (CLI) | payer BC, SELFPAY ==
--- NOTE | 2025-08-11 11:15 | XR_ITS ---
Examination: Screening digital mammography, bilateral Computer aided detection 3-D breast Tomosynthesis, bilateral Date and time of exam: August 11, 2025, 1057 hours, compared to mammograms dating to March 19, 2021 Indication: Screening Technique: Nonmagnified MLO, CC views of the breasts to been obtained, reconstructed from 3-D Tomosynthesis images. R2 computer aided detection program utilized for evaluation of suspicious masses and/or abnormal calcifications. 3-D Tomosynthesis images obtained. Findings: The breasts are heterogeneously dense, which may obscure small masses Benign calcifications. No interval suspicious masses Impression: BI-RADS category II: Benign Findings. Recommend 1 year follow-up mammogram.
== END | disposition home or self-care (01) ==
LOC: CDIM 10:46
PROVIDERS: Referring Provider Registered Nurse Community Health; Visit Provider Registered Nurse Community Health
DX: Z12.31 Encounter for screening mammogram for malignant neoplasm of breast (principal); R92.323 Mammographic fibroglandular density, bilateral breasts; R92.1 Mammographic calcification found on diagnostic imaging of breast
CPT/HCPCS: 77063; 77067